=== PATIENT | female | born 1950 | race Caucasian/White ===

== ENCOUNTER 2017-06-08 15:47 | Inpatient (IN) | payer MEDICARE ==
[2017-06-08] MEDS ORDERED: Morphine 2 MG/ML SYRINGE ONE ×2 (16:34→17:36)
--- NOTE | 2017-06-08 17:18 | RAD ---
RADIOGRAPH LEFT KNEE 4 VIEWS: DATE: 06/08/17 TIME: 4:41 p.m. HISTORY: 66-year-old female with traumatic left knee pain after fall. FINDINGS: Image resolution is decreased due to technique on the lateral and oblique views due to overlying grid markings. No dislocation. Osteopenia. No displaced acute fracture identified. Moderate sized entheso phyte at anterior superior pole of patella. Prepatellar soft tissue swelling. No high grade DJD. IMPRESSION: 1. No fracture identified. 2. Prominent enthesophyte at anterior superior pole of patella. 3. Acute, traumatic, superficial soft tissue swelling anterior to the patella. 4. Osteopenia. POS: [facility]
--- NOTE | 2017-06-08 17:21 | RAD ---
RADIOGRAPH LEFT HIP 2 VIEWS: DATE: 06/08/17 TIME: 4:42 p.m. HISTORY: 66-year-old female with acute left hip pain after fall. FINDINGS: There is a minimally displaced fracture at the junction between the femoral neck and intertrochanteri c region. No significant angulation. No dislocation of the hip joint. IMPRESSION: Acute, traumatic, minimally displaced left proximal femoral basicervical fracture. POS: [facility]
[2017-06-08 18:21] LABS: #Eosinphils 0.1 thou/uL (0.0-0.7); #Lymphocytes 1.6 thou/uL (1.20-3.40); #Monocytes 0.6 thou/uL (0.11-0.59); #Neutrophils 9.2 thou/uL (1.40-6.50); %Basophils 0.3 % (0.0-1.0); %Eosinophils 0.8 % (0.0-10.0); %Lymphocytes 14.2 % (21.0-51.0); %Monocytes 5.1 % (0.0-10.0); %Neutrophils 79.6 % (42.0-75.0); Hemoglobin 14.1 g/dL (12.0-16.0); Mean Corpuscular HGB CONC 33.6 g/dL (32.0-36.0); Mean Corpuscular Hemoglobin 31.3 pg (27.0-31.0); Mean Corpuscular Volume 93.2 fl (81.0-99.0); Platelet Count 182 thou/uL (130-400); RBC Distribution Width 11.5 % (11.5-14.5); Red Blood Cell (RBC) Count 4.51 mill/uL (4.20-5.40); White Blood Cell (WBC) Count 11.5 thou/uL (4.8-10.8)
[2017-06-08] MEDS ORDERED: hydrALAZINE 20 MG/ML VIAL SLOW IVP PRN (18:22)
[2017-06-08] MEDS ORDERED: Dextrose 5% in Water 1,000 ML IV PRN (18:22)
[2017-06-08] MEDS ORDERED: Ondansetron HCl/PF 4 MG/2 ML Vial IVP PRN (18:22)
[2017-06-08] MEDS ORDERED: Dextrose 50% Abboject 50 ML SYRINGE SLOW IVP PRN (18:22)
[2017-06-08] MEDS ORDERED: Ondansetron ODT 4 MG TAB PO PRN (18:22)
[2017-06-08 18:39] LABS: Anion Gap 9 mmol/L (10-20); BUN (Urea Nitrogen) 10 mg/dL (9.8-20.1); Calc. Creatinine Clearance 0 mL/min (70-130); Calcium 11.3 mg/dL (7.8-10.44); Carbon Dioxide 30 mmol/L (23-31); Chloride 108 mmol/L (98-107); Estimated GFR-MDRD 71; Glucose 91 mg/dL (80-115); Potassium 3.5 mmol/L (3.5-5.1); Sodium 143 mmol/L (136-145)
[2017-06-08 18:45] LABS: CKMB 0.5 ng/mL (0-6.6)
--- NOTE | 2017-06-08 20:08 | RAD ---
PORTABLE AP CHEST X-RAY 06/08/17 HISTORY: Preoperative evaluation secondary to hip fracture after a fall. FINDINGS: The cardiac silhouette is magnified by projection but is at the upper limits of normal to borderline enlarged. Pulmonary vasculature is within normal limits. Calcified granuloma overlies the right mid l veronica zone. Lungs are otherwise clear. Vascular calcifications in the thoracic aorta. Osseous structure s are intact. IMPRESSION: 1. No acute cardiopulmonary process. 2. Upper limits of normal to borderline cardiomegaly. POS: [facility]
[2017-06-08] MEDS ORDERED: traMADol HCl 50 MG TAB PO SCH (21:00)
--- NOTE | 2017-06-08 21:05 | HP ---
DATE OF ADMISSION: 06/08/2017 REQUESTING PHYSICIAN: Xander Talley M.D. ADMITTING PHYSICIAN: Davida Mercado M.D. CONSULTING PHYSICIAN: Bran Nova M.D. CHIEF COMPLAINT: Evaluation of left hip pain. HISTORY OF PRESENT ILLNESS: The patient is a 66-year-old female who has been relatively immobile lat maico after suffering a left patellar fracture. She was resting in her recliner when she tried to get up and ambulate, her walker with some distance away and she tripped and fell on her left knee again. She had immediate pain in her left leg. The patient was brought to [place] ED by EMS where hip f ilms showed a nondisplaced fracture of the left femoral neck. Dr. Bran Nova in Orthopedi cs was consulted and Trauma Service was asked to admit. The patient has a past medical history of vertigo for which she takes meclizine. She denies that she was dizzy at the time of the fall. She denies hitting her head. She denies loss of consciousness. She denies chest pain, shortness of breath, numbness or tingling in her extremities or other musculo skeletal pain. PAST MEDICAL HISTORY: Significant for seasonal allergies and vertigo. SOCIAL HISTORY: The patient is . The patient lives with a foster child who is 19. The lincoln nt also has 2 adult children, they do not live with her. The patient smokes approximately a pack a d ay for the last 50 years. The patient does not drink alcohol except rarely. The patient does not en dorse any other drug use. ALLERGIES: The patient reports an allergy to PENICILLIN and a CODEINE allergy. FAMILY HISTORY: Noncontributory for this case. PAST SURGICAL HISTORY: The patient reports a history of tubal ligation in the 1970s. The patient re ports no other surgeries. CODE STATUS: This discussion was had with the patient at bedside. She expressed a desire to have fu ll resuscitation. REVIEW OF SYSTEMS: A 10-point review of systems was negative except as mentioned in the HPI. PHYSICAL EXAMINATION: VITAL SIGNS: Blood pressure 163/77, pulse 86, respirations 18, O2 sat 100% on room air. GENERAL APPEARANCE: The patient is an elderly female lying in bed in no acute distress. HEENT: She is normocephalic and atraumatic. Eyes: PERRLA, EOMI. Ears: External auditory canals a re atraumatic. Nose: Her nares are patent. No blood or discharge. Mouth: Oropharynx is pink and moist. Dentition is intact. NECK: Her trachea is midline. She has no tenderness, no bruits. RESPIRATORY: Her lungs are clear to auscultation bilaterally with normal effort. There is no chest wall tenderness. CARDIOVASCULAR: She has a regular rate and rhythm. Normal S1 and S2. No murmurs, gallops or rubs. ABDOMEN: Soft, nontender, nondistended. She has normal bowel sounds. EXTREMITIES: She is neurovascularly intact x4. Distal pulses are 2+ bilaterally. She has no depend ent edema. Cap refill less than 2 seconds. MUSCULOSKELETAL: She has active range of motion in her right lower extremity with very limited range of motion in her left lower extremity. She is tender to palpation over the left greater trochanter. There is no ecchymosis. SKIN: Intact. NEUROLOGIC: Cranial nerves II-XII are intact. Her GCS is 15. She has no focal deficits. She is al ert and oriented x3. LABORATORY FINDINGS: Hematology: WBC is 11.5, hemoglobin 14.1, hematocrit 42.1, platelets 182. Elida dereck: Sodium 143, potassium 3.5, chloride 108, bicarbonate 30, BUN 10, creatinine 0.80, glucose 91 , calcium 11.3. CK-MB 0.5, troponin I 0.010. RADIOGRAPHIC FINDINGS: Hip x-ray, acute traumatic nondisplaced or minimally displaced left proximal femoral basicervical fra cture. Knee x-ray: 1. No fracture identified. 2. Prominent enthesophyte at anterior superior pole of the patella. 3. Acute traumatic superficial soft tissue swelling anterior to the patella. 4. Osteopenia. ASSESSMENT: 1. Status post mechanical fall from ground level. 2. Nondisplaced left hip fracture. 3. Acute traumatic pain. PLAN: 1. The plan will be to admit the patient to the surgical floor for surgical fixation of her left hip . This will likely happen tomorrow morning. The patient will be n.p.o. after midnight. 2. We will optimize the patient's pain control, initiate gastritis prophylaxis and mechanical deep v enous thrombosis prophylaxis. Postoperatively, chemical deep venous thrombosis prophylaxis will be i mplemented when okay by Orthopedic Surgery. This patient was discussed with Dr. Davida Mercado who agrees with the assessment and plan.
--- NOTE | 2017-06-08 21:36 | CON ---
DATE OF CONSULTATION: 06/08/2017 CHIEF COMPLAINT: Left hip pain. HISTORY OF PRESENT ILLNESS: Ms. Carter is a 66-year-old female who has fallen at home today. She sustained a patella fracture approximately 1 month ago. She was healing from this and starting to am bulate again. She did have poor balance though. She lost her balance and fell. She had pain in the left hip and was unable to ambulate. She was taken to the emergency department, where x-rays were o btained. She was found to have a left intertrochanteric femur fracture. Orthopedics was consulted f or this injury. The General Surgery Trauma team has evaluated the patient. PAST MEDICAL HISTORY: Includes vertigo, osteoporosis with recent fracture. She denies other medical problems currently. PAST SURGICAL HISTORY: Tubal ligation. PSYCHIATRIC HISTORY: Negative. SOCIAL HISTORY: The patient denies alcohol or drug use. She does smoke 1 pack of cigarettes per day . ALLERGIES: No known drug allergies. PHYSICAL EXAMINATION: VITAL SIGNS: Stable. She is afebrile. She is normotensive. HEENT: Normocephalic, atraumatic. RESPIRATORY: Breathing comfortably. ABDOMEN: Soft, nontender, nondistended. MUSCULOSKELETAL: The patient's left leg has pain with motion. She is neurovascularly intact. She h as palpable dorsalis pedis pulse and 2-second capillary refill. She has pain with any hip motion. IMAGES: X-rays of the pelvis and hip demonstrate an intertrochanteric femur fracture with mild displ acement. IMPRESSION: Elderly female with left intertrochanteric femur fracture. PLAN: At this point, the patient will need to be admitted to the hospital. She will be n.p.o. at [facility]. She will have adequate pain control. She will have DVT prophylaxis as well as surgical anti biotic prophylaxis. We will take her to the operating room for open reduction and fixation of the hi p fracture tomorrow morning. This will allow early mobilization and hopefully prevent complications of prolonged bed rest. She is aware of risk and benefits and wants to proceed.
[2017-06-08] MEDS: Famotidine 20 MG TAB PO SCH (22:25)
[2017-06-08] MEDS: Morphine 2 MG/ML SYRINGE IVP PRN (22:25)
[2017-06-08] MEDS: Sodium Chloride 0.9% 1,000 ML IV SCH (22:25)
[2017-06-08] MEDS: Acetaminophen 500 MG TAB PO SCH (23:42)
[2017-06-08] MEDS: Famotidine/PF 20 mg/2ml Vial SLOW IVP SCH (23:42)
[2017-06-08] MEDS: traMADol HCl 50 MG TAB PO SCH (23:42)
[2017-06-09 00:25] VITALS: BMI 19.3
[2017-06-09 05:16] LABS: #Eosinphils 0.2 thou/uL (0.0-0.7); #Lymphocytes 2.4 thou/uL (1.20-3.40); #Monocytes 0.7 thou/uL (0.11-0.59); #Neutrophils 4.6 thou/uL (1.40-6.50); %Basophils 0.5 % (0.0-1.0); %Eosinophils 2.8 % (0.0-10.0); %Lymphocytes 30.5 % (21.0-51.0); %Monocytes 8.7 % (0.0-10.0); %Neutrophils 57.5 % (42.0-75.0); Hemoglobin 12.9 g/dL (12.0-16.0); Mean Corpuscular HGB CONC 33.9 g/dL (32.0-36.0); Mean Corpuscular Hemoglobin 31.1 pg (27.0-31.0); Mean Corpuscular Volume 91.8 fl (81.0-99.0); Mean Platelet Volume 9.7 fL (7.4-10.4); Platelet Count 156 thou/uL (130-400); RBC Distribution Width 11.4 % (11.5-14.5); Red Blood Cell (RBC) Count 4.16 mill/uL (4.20-5.40); White Blood Cell (WBC) Count 7.9 thou/uL (4.8-10.8)
[2017-06-09] MEDS: traMADol HCl 50 MG TAB PO SCH ×3 (05:23→18:21)
[2017-06-09] MEDS: Acetaminophen 500 MG TAB PO SCH ×3 (05:23→18:23)
[2017-06-09] MEDS: Sodium Chloride 0.9% 1,000 ML IV SCH ×2 (05:26→12:31)
[2017-06-09 05:39] LABS: Anion Gap 7 mmol/L (10-20); BUN (Urea Nitrogen) 10 mg/dL (9.8-20.1); Calc. Creatinine Clearance 54 mL/min (70-130); Calcium 10.2 mg/dL (7.8-10.44); Carbon Dioxide 28 mmol/L (23-31); Chloride 107 mmol/L (98-107); Estimated GFR-MDRD 67; Glucose 94 mg/dL (80-115); Magnesium 1.7 mg/dL (1.6-2.6); Phosphorus 3.7 mg/dL (2.3-4.7); Potassium 4.3 mmol/L (3.5-5.1); Sodium 138 mmol/L (136-145)
[2017-06-09] MEDS ORDERED: Lidocaine 1% PF 5 ML VIAL ONE (07:07)
[2017-06-09] MEDS ORDERED: Dexamethasone 20 MG/5 ML VIAL ONE (07:07)
[2017-06-09] MEDS ORDERED: Ondansetron HCl/PF 4 MG/2 ML Vial ONE (07:07)
[2017-06-09] MEDS ORDERED: Propofol 200 MG/20 ML VIAL ONE (07:07)
[2017-06-09] MEDS ORDERED: ePHEDrine/0.9% NaCl/PF SYRINGE 50 mg/10 ml ONE (07:07)
[2017-06-09] MEDS ORDERED: Glycopyrrolate 0.2 MG/ML 5 ML SYRINGE ONE (07:07)
[2017-06-09] MEDS ORDERED: PHENYLEPHRINE-NS 100 MCG/ML 10 ML SYRINGE ONE (07:07)
[2017-06-09] MEDS ORDERED: Midazolam HCl 2 mg/2 ml Vial ONE (07:44)
[2017-06-09] MEDS ORDERED: Fentanyl 250 MCG/5 ML VIAL ONE (07:44)
[2017-06-09] MEDS ORDERED: Clindamycin/D5W 900 mg/50 ml Premix Bag ONE (07:55)
[2017-06-09] MEDS ORDERED: Levofloxacin 500 mg/D5W 100 ml Premix Bag ONE (07:55)
[2017-06-09] MEDS ORDERED: CEFAZOLIN/Water 2 GM/20 ML SYRINGE SLOW IVP SCH (08:00)
[2017-06-09] MEDS ORDERED: Promethazine HCl 25 MG/ML VIAL SLOW IVP PRN (09:29)
[2017-06-09] MEDS ORDERED: Promethazine HCl 25 MG/ML VIAL IM PRN (09:29)
[2017-06-09] MEDS ORDERED: Ondansetron HCl/PF 4 MG/2 ML Vial IVP PRN (09:29)
--- NOTE | 2017-06-09 09:58 | OP ---
DATE OF PROCEDURE: 06/09/2017 PROCEDURE PERFORMED: Open reduction and internal fixation of left intertrochanteric femur fracture. PREOPERATIVE DIAGNOSIS: Left intertrochanteric femur fracture. POSTOPERATIVE DIAGNOSIS: Left intertrochanteric femur fracture. COMPLICATIONS: None. ESTIMATED BLOOD LOSS: 150 mL SURGEON: Bran Nova M.D. ANESTHESIA: General. INDICATIONS: Ms. Hines is a 66-year-old female who fell at home. She sustained a proximal femur fracture. She was indicated for open reduction and internal fixation to restore alignment and promot e early mobilization. Goal of surgery is to prevent complications of prolonged bed rest. She is micheal re of risks and wants to proceed. DESCRIPTION OF PROCEDURE: Ms. Hines was identified in the preoperative holding area. Her correct extremity was marked. She was carried to the operating room. She was positioned supine. General a nesthesia was induced. A multidisciplinary timeout was performed. The left lower extremity was prep ped and draped in sterile fashion. We began the procedure with traction on the limb. We reduced the fracture into an anatomic position using intraoperative x-rays. At this point, we made a lateral incision. We dissected down through t he subcutaneous tissues to the bony level. We then placed our alignment guide on the femur. We plac ed our pin in centered position of the femoral head. At this point, we overreamed the pin. We then impacted our dynamic hip screw and side plate was placed. Three screws were placed through the side plate. We took final x-ray images. We thoroughly irrigated. We then closed with 0 Vicryl suture, 2 -0 Vicryl suture and enio. A sterile dressing was applied. The patient was taken to the recovery room in good condition. IMPLANTS: Synthes 2-hole DHS plate and screw were used.
[2017-06-09] MEDS: Morphine 2 MG/ML SYRINGE IVP PRN (10:10)
[2017-06-09] MEDS: Famotidine 20 MG TAB PO SCH ×2 (10:10→21:30)
[2017-06-09] MEDS: Famotidine/PF 20 mg/2ml Vial SLOW IVP SCH ×2 (10:55→21:34)
--- NOTE | 2017-06-09 12:35 | ADD-HP ---
ADDENDUM H and P dictated by Eric De La Vega, trauma PA. For full details, please see his history and physical . In short, Ms. Hines is a 66-year-old woman who fell at her home while trying to ambulate with her walker. She fell onto her left knee and had immediate pain into the left hip area. She had been on bed rest with an immobilizer for her left knee for some time due to a left patellar fracture, which w as treated nonoperatively and had just been getting over that when she fell. Her knee is okay but sh carmella is having a lot of pain in the left hip area. She has a history of vertigo, but states that this f all was not related to that. PAST MEDICAL HISTORY: Seasonal allergies and vertigo. SOCIAL HISTORY: The patient does smoke a pack a day. Does not drink on a regular basis and does not use any other drugs. She lives on her own home with a foster child. ALLERGIES: She reports PENICILLIN and CODEINE. PAST SURGICAL HISTORY: Has had a tubal ligation in the past. No other surgeries. REVIEW OF SYSTEMS: Ten system review of systems is negative except per HPI. PHYSICAL EXAMINATION: HEENT: Unremarkable. HEART: Regular in its rate and rhythm without murmurs, rubs or gallops. LUNGS: Clear to auscultation bilaterally. ABDOMEN: Soft, nontender, nondistended. EXTREMITIES: Her left leg is elevated on pillow. She is tender to palpation over the left upper thi gh area. No visible hematoma. Her left leg does appear to be somewhat foreshortened. Her feet are warm and well perfused. She has normal movement and sensation of her toes and ankle. NEUROLOGIC: No focal deficit. PSYCHIATRIC: Alert, oriented and appropriate. LABORATORY AND X-RAY FINDINGS: Labs are reviewed and are unremarkable. Images are also reviewed. C hest x-ray is unremarkable, although the heart is somewhat borderline in size. X-ray of the knee jena wed some soft tissue swelling, but no other acute injury and x-ray of the left hip showed an acute mi nimally displaced left proximal femur fracture at the junction between the femoral neck and intertroc hanteric region. ASSESSMENT: Proximal femur fracture. Dr. Nova has already evaluated. PLAN: Operative treatment. Patient is otherwise stable with no known medical issues. We will antonio chiara to manage her during her hospital stay.
[2017-06-09] MEDS: Clindamycin/D5W 900 MG in Premix Bag 1 BAG IVPB SCH (16:50)
[2017-06-09 17:33] LABS: Bilirubin Negative (Negative); Blood, Urine Trace (Negative); Clarity CLEAR (Clear); Glucose, Urine (Dipstick) Negative (Negative); Leukocyte Small (Negative); Nitrite Negative (Negative); Protein, Urine (Dipstick) Negative (Neg-Trace); Specific Gravity, Urine 1.009 (1.002-1.036); Urobilinogen 0.2 mg/dL (0.2-1.0); pH, Urine 5.5 (5.0-9.0)
[2017-06-09 17:35] LABS: Bacteria/HPF None Seen HPF (None Seen); Hyaline Casts/LPF 0-3 HYALINE CAST LPF (0-3 Hyaline); RBC/HPF 0-3 HPF (0-3); Squamous Epithelial None Seen HPF (0-3)
[2017-06-09] MEDS ORDERED: Ibuprofen 200 MG TAB PO SCH (18:30)
--- NOTE | 2017-06-09 19:32 | RAD ---
LEFT HIP TWO INTRAOPERATIVE FLUOROSCOPIC IMAGES: Date: 06-09-17 History: Left hip ORIF. Comparison: 06-08-17 FINDINGS: There has been interval internal fixation of the left cervical femoral neck fracture with a slide magdalena te and dynamic compression type screw as well as distal screws transfixing the previously seen fractu re. No hardware complication is seen. No other findings. IMPRESSION: Internal fixation of left femoral neck fracture. POS: [facility]
--- NOTE | 2017-06-09 21:56 | PRG ---
DATE OF SERVICE: 06/09/2017 ATTENDING PHYSICIAN: Davida Mercado M.D. SUBJECTIVE: Patient is a 66-year-old female who suffered a left femoral neck fracture after ground l evel fall yesterday. Patient is postop day 0 status post open reduction and internal fixation. Curr ently, she is stable on the floor. Reports that her pain is well controlled and voices no other comp laints. OBJECTIVE: VITAL SIGNS: BP 115/63, pulse 82, temperature 98.3, respirations 16, O2 sat 98% on room air. GENERAL: Patient is an elderly female lying in bed in no acute distress. HEENT: Shows normocephalic and atraumatic. RESPIRATORY: Her lungs are clear to auscultation bilaterally with normal effort. CARDIOVASCULAR: She has a regular rate and rhythm. Normal S1 and S2. No murmurs, gallops or rubs. ABDOMEN: Soft, nontender, nondistended. She has somewhat hypoactive bowel sounds. EXTREMITIES: She is neurovascularly intact x4. Distal pulses are 2+ bilaterally. She has no depend ent edema. NEUROLOGIC: Her GCS is 15. She is alert and oriented x3. Has no focal deficits. LABORATORY DATA: Hematology: WBC 7.9, hemoglobin 12.9, hematocrit 38.2, platelets 156. Chemistry: Sodium 138, potassium 4.3, chloride 107, bicarbonate 28, BUN 10, creatinine 0.85, glucose 94, calciu m 10.2, phosphorus 3.7, magnesium 1.7. IMAGING: There are no images to review. ASSESSMENT: 1. Status post mechanical fall from ground level. 2. Nondisplaced left intertrochanteric fracture status post open reduction and internal fixation. 3. Acute traumatic pain. PLAN: 1. Continue to optimize pain control. 2. PT and OT for mobilization. 3. Continue pulmonary toileting and gastritis prophylaxis. 4. This patient was discussed over the phone with Dr. Sarbjit Costello who agrees with the assessment a nd plan for mobilization. 5. Patient has been somewhat oliguric this afternoon.
[2017-06-09] MEDS ORDERED: Ibuprofen 600 MG TAB PO SCH (23:59)
[2017-06-10] MEDS: Acetaminophen 500 MG TAB PO SCH ×4 (00:30→17:58)
[2017-06-10] MEDS: traMADol HCl 50 MG TAB PO SCH ×4 (00:30→18:42)
[2017-06-10] MEDS: Sodium Chloride 0.9% 1,000 ML IV SCH ×2 (00:30→13:57)
[2017-06-10] MEDS: Clindamycin/D5W 900 MG in Premix Bag 1 BAG IVPB SCH (00:31)
[2017-06-10] MEDS: Ibuprofen 200 MG TAB PO SCH ×4 (00:45→17:58)
[2017-06-10 05:37] LABS: #Lymphocytes 0.7 thou/uL (1.20-3.40); #Monocytes 0.5 thou/uL (0.11-0.59); #Neutrophils 7.3 thou/uL (1.40-6.50); %Basophils 0.1 % (0.0-1.0); %Eosinophils 0.3 % (0.0-10.0); %Lymphocytes 7.7 % (21.0-51.0); %Monocytes 5.5 % (0.0-10.0); %Neutrophils 86.5 % (42.0-75.0); Hemoglobin 12.1 g/dL (12.0-16.0); Mean Corpuscular HGB CONC 33.2 g/dL (32.0-36.0); Mean Corpuscular Hemoglobin 30.6 pg (27.0-31.0); Mean Corpuscular Volume 91.9 fl (81.0-99.0); Platelet Count 131 thou/uL (130-400); RBC Distribution Width 11.2 % (11.5-14.5); Red Blood Cell (RBC) Count 3.95 mill/uL (4.20-5.40); White Blood Cell (WBC) Count 8.4 thou/uL (4.8-10.8)
[2017-06-10 05:56] LABS: Anion Gap 11 mmol/L (10-20); BUN (Urea Nitrogen) 10 mg/dL (9.8-20.1); Calc. Creatinine Clearance 59 mL/min (70-130); Calcium 10.3 mg/dL (7.8-10.44); Carbon Dioxide 22 mmol/L (23-31); Chloride 104 mmol/L (98-107); Estimated GFR-MDRD 73; Glucose 128 mg/dL (80-115); Magnesium 2.1 mg/dL (1.6-2.6); Phosphorus 3.7 mg/dL (2.3-4.7); Potassium 5.1 mmol/L (3.5-5.1); Sodium 132 mmol/L (136-145)
[2017-06-10] MEDS: Enoxaparin Sodium 40 MG/0.4 ML SYRINGE SC SCH (08:55)
[2017-06-10] MEDS: Famotidine 20 MG TAB PO SCH ×2 (08:56→21:25)
[2017-06-10] MEDS: traMADol HCl 50 MG TAB PO PRN (08:56)
[2017-06-10] MEDS ORDERED: Amlodipine 5 MG TAB PO SCH (09:00)
[2017-06-10] MEDS: Famotidine/PF 20 mg/2ml Vial SLOW IVP SCH ×2 (09:31→23:54)
--- NOTE | 2017-06-10 14:59 | PRG ---
DATE OF SERVICE: 06/10/2017 ATTENDING PHYSICIAN: Sarbjit Costello D.O. SUBJECTIVE: The patient is a 66-year-old female who suffered a left femoral neck fracture after grou nd level fall 2 days ago. She is postop day #1, now status post open reduction and internal fixation . Currently, she is stable on the floor and voices no complaints this morning. Her pain, she says i s well controlled. OBJECTIVE: VITAL SIGNS: BP 169/81, pulse 61, temperature 97.6, respirations 16, O2 sat 95% on room air. GENERAL APPEARANCE: Patient is an elderly adult female lying in bed in no acute distress. HEENT: Normocephalic, atraumatic. RESPIRATORY: Lung sounds clear to auscultation bilaterally with normal effort. CARDIOVASCULAR: She has regular rate and rhythm. Normal S1 and S2. No murmurs, gallops or rubs. ABDOMEN: Soft, nontender, and nondistended. She has hypoactive bowel sounds. EXTREMITIES: She is neurovascularly intact x4. Distal pulses are 2+ bilaterally. She has no depend ent edema. NEUROLOGIC: Her GCS is 15 this morning. She is alert and oriented x3. She has no focal deficits. LABORATORY DATA: Hematology: WBC 8.4, hemoglobin 12.1, hematocrit 36.3, platelets 131. Chemistry: Sodium 132, potassium 5.1, chloride 104, bicarbonate 22, BUN 10, creatinine 0.78, glucose 128. IMAGING: There are no images to review today. ASSESSMENT: 1. Status post ground level fall. 2. Nondisplaced left intertrochanteric fracture status post open reduction and internal fixation. 3. Acute traumatic pain. 4. History of hypertension, present on admission. PLAN: 1. Continue pain control regimen as currently ordered. 2. PT and OT for mobilization. 3. Continue incentive spirometry and gastritis prophylaxis. 4. Patient started on amlodipine 5 mg daily for hypertension. 5. Patient is currently awaiting placement in a custodial facility. Case management is follow ing. The patient was seen and examined along Dr. Sarbjit Costello on rounds who agrees with the assessment an d plan.
[2017-06-11 00:40] VITALS: TEMP 98.2
[2017-06-11] MEDS: Acetaminophen 500 MG TAB PO SCH ×3 (00:58→11:49)
[2017-06-11] MEDS: Ibuprofen 200 MG TAB PO SCH ×3 (00:59→11:49)
[2017-06-11] MEDS: traMADol HCl 50 MG TAB PO SCH ×2 (01:03→06:33)
[2017-06-11 07:55] VITALS: BP 179/76
[2017-06-11] MEDS: Famotidine/PF 20 mg/2ml Vial SLOW IVP SCH (08:17)
[2017-06-11] MEDS: Famotidine 20 MG TAB PO SCH (08:17)
[2017-06-11] MEDS: Enoxaparin Sodium 40 MG/0.4 ML SYRINGE SC SCH (08:17)
[2017-06-11 09:02] LABS: Anion Gap 8 mmol/L (10-20); BUN (Urea Nitrogen) 14 mg/dL (9.8-20.1); Calc. Creatinine Clearance 54 mL/min (70-130); Calcium 10.5 mg/dL (7.8-10.44); Carbon Dioxide 26 mmol/L (23-31); Chloride 108 mmol/L (98-107); Estimated GFR-MDRD 67; Glucose 90 mg/dL (80-115); Magnesium 1.9 mg/dL (1.6-2.6); Potassium 4.2 mmol/L (3.5-5.1); Sodium 138 mmol/L (136-145)
[2017-06-11] MEDS: traMADol HCl 50 MG TAB PO PRN (14:21)
[2017-06-12] MEDS ORDERED: Lisinopril 10 MG TAB PO SCH (09:00)
--- NOTE | 2017-06-12 12:23 | DIS ---
DATE OF ADMISSION: 06/08/2017 DATE OF DISCHARGE: 06/11/2017 ADMITTING PHYSICIAN: Dr. Davida Mercado. DISCHARGING PHYSICIAN: Dr. Sarbjit Costello. CONSULTING PHYSICIAN: Dr. Bran Nova, Orthopedics. REASON FOR HOSPITALIZATION: A ground-level fall with left hip pain. HOSPITAL DIAGNOSIS: Left intertrochanteric femur fracture. PROCEDURES: ORIF, left intertrochanteric femur fracture; date 06/09/2017; surgeon, Dr. Bran Nova. DISCHARGE CONDITION: Good. DISPOSITION: [facility] swing bed. DISCHARGE MEDICATIONS: Patient can resume home medications. She will also continue to take medications as we prescribed in the hospital including Lovenox for DVT prophylaxis. ACTIVITY ORDERS: Weightbearing as tolerated. THERAPY ORDERS: Continue physical and occupational therapy. DIETARY: Regular diet. FOLLOWUP: Follow up with Dr. Nova in 2 weeks and follow up with PCP for management of new diagnosis of hypertension. She was started on lisinopril while in the hospital. BRIEF HISTORY OF HOSPITALIZATION: Ms. Hines is a 66-year-old female, who sustained a left hip fracture after a ground-level fall. She was transported to [facility] and admitted to the hospital by Trauma services. Dr. Nova, Orthopedics, was consulted and took the patient to the OR for ORIF of her hip fracture. She postoperatively had hypertension and was started on Norvasc; however, that was discontinued due to bradycardia and she was then started on lisinopril. On hospital day #3, she was accepted to swing bed at [facility]. She will be discharged at that facility. She is to follow up with her PCP for management of hypertension. She is to follow up with Dr. Nova in 2 weeks. The patient was seen and examined with Dr. Costello on the day of discharge. Dr. Costello agrees with the assessment and plan. [facility]
--- NOTE | 2017-06-13 17:32 | EKG ---
Test Reason : Blood Pressure : / mmHG Vent. Rate : 055 BPM Atrial Rate : 055 BPM P-R Int : 158 ms QRS Dur : 142 ms QT Int : 476 ms P-R-T Axes : 033 010 002 degrees QTc Int : 455 ms Sinus bradycardia Left bundle branch block Abnormal ECG When compared with ECG of 08-JUN-2017 19:01, (Unconfirmed) Vent. rate has decreased BY 35 BPM Nonspecific T wave abnormality now evident in Anterior leads Confirmed by DR. Aguilar REYEZ ([id number]) on 06/13/2017 5:31:50 PM Referred By: Confirmed By:DR. Aguilar REYEZ
== END 2017-06-11 15:00 | disposition swing bed (61) | DRG 482 ==
LOC: ERS 15:47 → SURG A 18:14
PROVIDERS: ADMIT Surgery; ATTEND Surgery
PROC: 0QS704Z Reposition Left Upper Femur with Internal Fixation Device, Open Approach (ICD-10-PCS; principal; 2017-06-09)
DX: S72.142A Displaced intertrochanteric fracture of left femur, initial encounter for closed fracture (principal); F17.210 Nicotine dependence, cigarettes, uncomplicated; W18.30XA Fall on same level, unspecified, initial encounter; Z91.81 History of falling; Y92.019 Unspecified place in single-family (private) house as the place of occurrence of the external cause; Z88.5 Allergy status to narcotic agent; Z88.0 Allergy status to penicillin; R42 Dizziness and giddiness; M85.88 Other specified disorders of bone density and structure, other site; G89.11 Acute pain due to trauma; I10 Essential (primary) hypertension; R00.1 Bradycardia, unspecified; T46.1X5A Adverse effect of calcium-channel blockers, initial encounter; S82.002D Unspecified fracture of left patella, subsequent encounter for closed fracture with routine healing; I97.3 Postprocedural hypertension
CPT/HCPCS: 36415; 51702; 71045; 76001; 80048; 81003; 81015; 82553; 83735; 84100; 84484; 85025; 86850; 86900; 86901; 87086; 93005; 93010; 96374; 96376; C1713; C1769; G0390; G8978-GP-CK; G8979-GP-CI; G8987-GO-CK; G8988-GO-CI; J1100; J1650; J1956; J2001; J2250; J2270; J2405; J2704; J3010; J3490

== ENCOUNTER 2021-01-08 15:18 | Inpatient (IN) | payer MEDICARE ==
[~2021-01-08 15:18] MED LIST: Iopamidol-370 76% 500 ML 1 ML ONE
[2021-01-08 16:34] LABS: #Basophils 0.1 thou/uL (0.0-0.2); #Eosinphils 0.1 thou/uL (0.0-0.7); #Lymphocytes 1.7 thou/uL (1.20-3.40); #Monocytes 0.5 thou/uL (0.11-0.59); #Neutrophils 4.9 thou/uL (1.40-6.50); %Basophils 0.7 % (0.0-1.0); %Eosinophils 1.9 % (0.0-10.0); %Lymphocytes 23.5 % (21.0-51.0); %Monocytes 6.8 % (0.0-10.0); %Neutrophils 67.1 % (42.0-75.0); Hemoglobin 14.4 g/dL (12.0-16.0); Mean Corpuscular Hemoglobin 31.6 pg (27.0-31.0); Mean Corpuscular Volume 92.9 fL (78.0-98.0); Mean Platelet Volume 9.6 fL (7.4-10.4); Platelet Count 192 thou/uL (130-400); Red Blood Cell (RBC) Count 4.57 mill/uL (4.20-5.40); White Blood Cell (WBC) Count 7.4 thou/uL (4.8-10.8)
[2021-01-08 17:01] LABS: ALT (SGPT) 7 U/L (8-55); AST (SGOT) 13 U/L (5-34); Albumin 3.9 g/dL (3.4-4.8); Alkaline Phosphatase 88 U/L (40-110); Anion Gap 13 mmol/L (10-20); BUN (Urea Nitrogen) 9 mg/dL (9.8-20.1); Bilirubin, Total 0.6 mg/dL (0.2-1.2); Calc. Creatinine Clearance 0 mL/min (70-130); Calcium 10.9 mg/dL (7.8-10.44); Carbon Dioxide 24 mmol/L (23-31); Chloride 109 mmol/L (98-107); Globulin 2.8 g/dL (2.4-3.5); Glucose 102 mg/dL (83-110); Potassium 4.5 mmol/L (3.5-5.1); Protein, Total 6.7 g/dL (5.8-8.1); Sodium 141 mmol/L (136-145)
[2021-01-08] MEDS ORDERED: Aspirin 325 MG TAB ONE (18:12)
[2021-01-08] MEDS ORDERED: hydrALAZINE 20 MG/ML VIAL ONE (18:53)
[2021-01-08] MEDS ORDERED: Acetaminophen 325 MG TAB PO PRN (19:45)
[2021-01-08] MEDS ORDERED: Ondansetron PF 4 MG/2 ML Vial IVP PRN (19:45)
[2021-01-08] MEDS ORDERED: hydrALAZINE 20 MG/ML VIAL SLOW IVP PRN (19:45)
[2021-01-08 22:37] VITALS: BMI 19.3
[2021-01-09 06:26] LABS: #Basophils 0.1 thou/uL (0.0-0.2); #Eosinphils 0.2 thou/uL (0.0-0.7); #Lymphocytes 2.6 thou/uL (1.20-3.40); #Monocytes 0.6 thou/uL (0.11-0.59); #Neutrophils 3.9 thou/uL (1.40-6.50); %Basophils 0.7 % (0.0-1.0); %Eosinophils 2.4 % (0.0-10.0); %Lymphocytes 34.9 % (21.0-51.0); %Monocytes 8.2 % (0.0-10.0); %Neutrophils 53.8 % (42.0-75.0); Hemoglobin 14.6 g/dL (12.0-16.0); Mean Corpuscular HGB CONC 34.3 g/dL (32.0-36.0); Mean Corpuscular Hemoglobin 31.8 pg (27.0-31.0); Mean Corpuscular Volume 92.8 fL (78.0-98.0); Platelet Count 192 thou/uL (130-400); RBC Distribution Width 12.1 % (11.5-14.5); Red Blood Cell (RBC) Count 4.59 mill/uL (4.20-5.40); White Blood Cell (WBC) Count 7.3 thou/uL (4.8-10.8)
[2021-01-09 06:48] LABS: Anion Gap 10 mmol/L (10-20); BUN (Urea Nitrogen) 11 mg/dL (9.8-20.1); Calc. Creatinine Clearance 44 mL/min (70-130); Calcium 11.1 mg/dL (7.8-10.44); Carbon Dioxide 29 mmol/L (23-31); Chloride 108 mmol/L (98-107); Cholesterol 184 mg/dl (< 200 Desired); Glucose 93 mg/dL (83-110); HDL Cholesterol 46 mg/dL (>60 Neg Risk); LDL Cholesterol, Calculated 125 mg/dL; Sodium 142 mmol/L (136-145); Triglycerides 65 mg/dL (Less than 150)
[2021-01-09] MEDS: Aspirin 81 mg Enteric Coated Tablet PO SCH (08:52)
[2021-01-09] MEDS ORDERED: FLU VACC QS2021-22(65YR UP)/PF 240 MCG/0.7 ML SYRINGE IM ONE (09:00)
[2021-01-09 11:34] LABS: SARS-CoV-2 PCR by NAA Not Detected (NotDetected)
[2021-01-09 12:38] LABS: Hemoglobin A1c 5.1 % (4.0-6.0)
[2021-01-09] MEDS: Atorvastatin Calcium 40 MG TAB PO SCH (22:23)
[2021-01-10 06:03] LABS: #Basophils 0.1 thou/uL (0.0-0.2); #Eosinphils 0.1 thou/uL (0.0-0.7); #Lymphocytes 2.7 thou/uL (1.20-3.40); #Monocytes 0.6 thou/uL (0.11-0.59); #Neutrophils 3.7 thou/uL (1.40-6.50); %Basophils 1.1 % (0.0-1.0); %Lymphocytes 37.9 % (21.0-51.0); %Monocytes 8.4 % (0.0-10.0); %Neutrophils 50.7 % (42.0-75.0); Hemoglobin 13.7 g/dL (12.0-16.0); Mean Corpuscular HGB CONC 32.7 g/dL (32.0-36.0); Mean Corpuscular Hemoglobin 30.4 pg (27.0-31.0); Mean Corpuscular Volume 92.9 fL (78.0-98.0); Mean Platelet Volume 10.1 fL (7.4-10.4); Platelet Count 198 thou/uL (130-400); White Blood Cell (WBC) Count 7.2 thou/uL (4.8-10.8)
[2021-01-10 06:23] LABS: Anion Gap 9 mmol/L (10-20); BUN (Urea Nitrogen) 13 mg/dL (9.8-20.1); Calc. Creatinine Clearance 43 mL/min (70-130); Calcium 11.1 mg/dL (7.8-10.44); Carbon Dioxide 27 mmol/L (23-31); Chloride 108 mmol/L (98-107); Glucose 93 mg/dL (83-110); Potassium 4.7 mmol/L (3.5-5.1); Sodium 139 mmol/L (136-145)
[2021-01-10] MEDS ORDERED: Lisinopril 20 MG TAB PO SCH ×2 (09:00)
[2021-01-10] MEDS: Lisinopril 10 MG TAB PO SCH (09:33)
[2021-01-10] MEDS: Aspirin 81 mg Enteric Coated Tablet PO SCH (09:34)
[2021-01-10] MEDS: Lactated Ringer's 1,000 ML IV SCH (09:38)
[2021-01-10] MEDS: Atorvastatin Calcium 40 MG TAB PO SCH (20:25)
[2021-01-11] MEDS: Lactated Ringer's 1,000 ML IV SCH ×2 (04:56→12:23)
[2021-01-11 06:15] LABS: Anion Gap 7 mmol/L (10-20); BUN (Urea Nitrogen) 13 mg/dL (9.8-20.1); Calc. Creatinine Clearance 49 mL/min (70-130); Carbon Dioxide 29 mmol/L (23-31); Chloride 108 mmol/L (98-107); Glucose 88 mg/dL (83-110); Potassium 4.3 mmol/L (3.5-5.1); Sodium 140 mmol/L (136-145)
[2021-01-11] MEDS: Lisinopril 10 MG TAB PO SCH (08:44)
[2021-01-11] MEDS: Aspirin 81 mg Enteric Coated Tablet PO SCH (10:02)
[2021-01-11 11:48] VITALS: BP 144/79; TEMP 98
[2021-01-11] MEDS ORDERED: Lisinopril 10 MG TAB PO SCH (12:15)
== END 2021-01-11 14:58 | disposition home or self-care (01) | DRG 65 ==
LOC: ERS 15:18 → 3SE 18:23 → OBSVTOIN 01-09 12:24
PROVIDERS: ADMIT Internal Medicine; ATTEND Internal Medicine
DX: I63.9 Cerebral infarction, unspecified (principal); G81.91 Hemiplegia, unspecified affecting right dominant side; I50.22 Chronic systolic (congestive) heart failure; F17.210 Nicotine dependence, cigarettes, uncomplicated; I11.0 Hypertensive heart disease with heart failure; I44.7 Left bundle-branch block, unspecified; Z20.822 Contact with and (suspected) exposure to COVID-19; I16.0 Hypertensive urgency; E83.52 Hypercalcemia; Z88.0 Allergy status to penicillin; Z88.5 Allergy status to narcotic agent; Z98.51 Tubal ligation status; Z98.890 Other specified postprocedural states; Z71.6 Tobacco abuse counseling
CPT/HCPCS: 36415; 70496; 70498; 70551; 80048; 80053; 80061; 83036; 84443; 85025; 93005; 93306; G0378; J0360; J7120; Q9967; U0003; U0005

== ENCOUNTER 2021-04-02 07:12 | Emergency (ER) | payer MEDICARE | END 2021-04-02 08:55 | disposition home or self-care (01) | LOC: ERS 07:12 | DX: R00.1 Bradycardia, unspecified (principal); T44.7X1A Poisoning by beta-adrenoreceptor antagonists, accidental (unintentional), initial encounter; I10 Essential (primary) hypertension; E78.5 Hyperlipidemia, unspecified; E78.00 Pure hypercholesterolemia, unspecified; F17.210 Nicotine dependence, cigarettes, uncomplicated; Z79.82 Long term (current) use of aspirin | CPT/HCPCS: 93005 ==